=== PATIENT | female | born 1990 | race Two or more races ===

== ENCOUNTER 2018-03-18 12:11 | Emergency (ER) | payer MEDICAID ==
[~2018-03-18] VITALS: Ht 162.6 cm; Wt 61.2 kg
--- NOTE | 2018-03-18 12:20 | NUR ---
A/OX4, AMBULATORY IN A SETADY GAIT TO ED BED 10. PT IS C/O HEADACHE, DIZZINESS, LIGHTHEADED SINCE SUNDAY, FEELS WEAK. NAUSEA. PALCED ON CONT CARDIAC AND POX MONITORING. NAD VSS RR EVEN AND UNLABORED. WILL CONT TO MONITR
[2018-03-18] MEDS ORDERED: IV NS 0.9% 1,000 ML BAG IV ONE (12:30)
[2018-03-18] MEDS ORDERED: diphenhydrAMINE HCL 50 MG/ML VIAL IV ONE (12:30)
[2018-03-18] MEDS ORDERED: KETOROLAC TROMETHAMINE INJ 30 MG/ML VIAL IV ONE (12:30)
[2018-03-18] MEDS ORDERED: METOCLOPRAMIDE HCL 10 MG/2 ML VIAL IV ONE (12:30)
[2018-03-18] MEDS ORDERED: diphenhydrAMINE HCL 50 MG/ML VIAL ONE (12:51)
[2018-03-18] MEDS ORDERED: METOCLOPRAMIDE HCL 10 MG/2 ML VIAL ONE (12:51)
[2018-03-18] MEDS ORDERED: KETOROLAC TROMETHAMINE INJ 30 MG/ML VIAL ONE (12:51)
--- NOTE | 2018-03-18 12:55 | NUR ---
NEW IV STARTED ON RAC, 20G.
[2018-03-18 13:07] LABS: APPEARANCE,URINE Clear (CLEAR); BILIRUBIN,URINE Negative (NEGATIVE); BLOOD, URINE Negative Ery/uL (NEGATIVE); COLOR,URINE Yellow (YELLOW); KETONES,URINE Negative (NEGATIVE); LEUKOCYTE ESTERASE ,URINE Negative (NEGATIVE); NITRITE, URINE Negative (NEGATIVE); PROTEIN,URINE Negative (NEGATIVE); UGLUCOSE Negative (NEGATIVE); UROBILINOGEN,URINE 0.2 EU/dL (0.2)
--- NOTE | 2018-03-18 13:50 | NUR ---
PATIENT TAKEN TO RADIOLOGY VIA STRETCHER.
[2018-03-18 15:24] VITALS: BP 112/60
--- NOTE | 2018-03-18 15:25 | NUR ---
Patient discharged to home in stable condition. Written and verbal after care instructions given. Patient verbalizes understanding of instruction.IV removed. Catheter intact and site benign. Pressure and 4x4 applied to site. No bleeding noted.
== END 2018-03-18 15:25 | disposition home or self-care (01) ==
LOC: ER 12:13
DX: R51 Headache (principal)
CPT/HCPCS: 70450; 81001; 82962; 84703; 96361; 96374; 96375; 99285; A4606; J1200; J1885; J2765; J7030; Z7610; 81000-TC